=== PATIENT | female | born 1980 ===

== ENCOUNTER 2022-10-19 10:41 | Outpatient (CLI) | payer OTHER | END 2022-10-19 12:42 | disposition home or self-care (01) | LOC: PRENATAL 10:41 | PROVIDERS: ATTEND Obstetrics & Gynecology Maternal & Fetal Medicine | DX: O35.3XX0 Maternal care for (suspected) damage to fetus from viral disease in mother, not applicable or unspecified (principal); O09.529 Supervision of elderly multigravida, unspecified trimester; Z3A.21 21 weeks gestation of pregnancy ==

== ENCOUNTER 2023-01-23 10:36 | Outpatient (CLI) | payer OTHER | END 2023-01-23 11:50 | disposition home or self-care (01) | LOC: PRENATAL 10:36 | PROVIDERS: ATTEND Obstetrics & Gynecology Maternal & Fetal Medicine | DX: O26.849 Uterine size-date discrepancy, unspecified trimester (principal); O36.8199 Decreased fetal movements, unspecified trimester, other fetus; O09.529 Supervision of elderly multigravida, unspecified trimester; O14.90 Unspecified pre-eclampsia, unspecified trimester; Z3A.34 34 weeks gestation of pregnancy ==

== ENCOUNTER 2023-02-17 09:06 | Inpatient (IN) | payer OTHER ==
[~2023-02-17] VITALS: Ht 165.1 cm; Wt 3.2 kg
[2023-02-17 10:07] LABS: HEMATOCRIT 35.3 % (36.0-45.00); HEMOGLOBIN 11.4 g/dL (12.0-15.00); MEAN CELL VOLUME 79.4 fL (80.00-100.00); MEAN CORPUSCULAR HEMOGLOBIN 25.6 pg (27.00-32.0); MEAN CORPUSCULAR HGB CONC 32.2 g/dl (32.0-36.0); PLATELET COUNT 238 K/uL (150-450); RED BLOOD COUNT 4.45 M/uL (4.00-6.00); RED CELL DISTRIBUTION WIDTH 15.2 % (11.5-14.5)
[2023-02-17 10:09] LABS: PH,URINE 6.5 (5.0-8.0); URINE APPEARANCE Clear; URINE BILIRRUBIN Negative (NEGATIVE); URINE BLOOD Moderate; URINE COLOR Yellow; URINE GLUCOSE Negative (NEGATIVE); URINE LEUKOCYTE Negative; URINE NITRATE Negative; URINE PROTEIN Negative (NEGATIVE); URINE UROBILINOGEN 0.2 E.U./dl
[2023-02-17 10:13] LABS: URINE BACTERIA 746.9 uL (0.0-1933); URINE EPITHELIAL CELLS 13.4 uL (0.0-38.8); URINE WBC 12.9 uL (0.0-23.2)
[2023-02-17] MEDS ORDERED: PRENATAL TABLE1 EAC1 PO (10:28)
[2023-02-17] MEDS ORDERED: CITRATE OF MAG296 ML PO (10:29)
[2023-02-17] MEDS ORDERED: ECOTRIN81 MG PO (10:29)
[2023-02-17 11:02] LABS: INR < 0.93; PARTIAL THROMBOPLASTIN TIME 24.9 SECONDS (22.0-34.0); PROTHROMBIN TIME 9.8 SECONDS (9.0-11.5)
[2023-02-17 11:04] LABS: ALBUMIN 2.6 gm/dL (3.4-5.0); BILIRUBIN TOTAL 0.3 mg/dL (0.3-1.2); CALCIUM 8.9 mg/dL (8.5-10.1); CREATININE SERUM 0.56 mg/dL (0.55-1.02); GFR 118.72; GLOBULINA 3.7 G/DL (2.4-3.5); POTASSIUM 3.91 mEq/L (3.5-5.1); TOTAL PROTEIN 6.3 gm/dL (6.4-8.2)
[2023-02-17 22:09] LABS: HEMATOCRIT 32.9 % (36.0-45.00); HEMOGLOBIN 10.9 g/dL (12.0-15.00); MEAN CELL VOLUME 78.1 fL (80.00-100.00); MEAN CORPUSCULAR HEMOGLOBIN 25.9 pg (27.00-32.0); MEAN CORPUSCULAR HGB CONC 33.1 g/dl (32.0-36.0); PLATELET COUNT 203 K/uL (150-450); RED BLOOD COUNT 4.22 M/uL (4.00-6.00); RED CELL DISTRIBUTION WIDTH 15.5 % (11.5-14.5)
[2023-02-20] MEDS ORDERED: Tylenol #3 PO (08:47)
[2023-02-20] MEDS ORDERED: NAPR500T14 PO (08:47)
== END 2023-02-20 11:57 | disposition home or self-care (01) | DRG 785 ==
LOC: LDR 09:06 → O/R 14:03 → OB/GYN 16:07
PROVIDERS: ADMIT Obstetrics & Gynecology; ATTEND Obstetrics & Gynecology
PROC: 10D00Z1 Extraction of Products of Conception, Low, Open Approach (ICD-10-PCS; 2023-02-17)
PROC: 4A1HXCZ Monitoring of Products of Conception, Cardiac Rate, External Approach (ICD-10-PCS; 2023-02-17)
PROC: 0UB70ZZ Excision of Bilateral Fallopian Tubes, Open Approach (ICD-10-PCS; principal; 2023-02-17 13:30)
DX: O34.211 Maternal care for low transverse scar from previous cesarean delivery (principal); Z30.2 Encounter for sterilization; Z20.822 Contact with and (suspected) exposure to COVID-19; Z37.0 Single live birth; Z3A.38 38 weeks gestation of pregnancy